=== PATIENT | male | born 1985 | race Hispanic/Latino ===

== ENCOUNTER 2018-02-15 23:48 | Emergency (ER) | payer SELFPAY ==
[~2018-02-15] VITALS: Ht 170.2 cm; Wt 68.0 kg
[2018-02-16] MEDS ORDERED: ASPIRIN 81 MG CHEW TAB PO ONE (00:30)
[2018-02-16 01:26] LABS: BASOPHILS % 0.3 % (0.0-1.0); EOSINOPHILS # (AUTO) 0.2 (0.0-0.4); HEMOGLOBIN 14.9 g/dL (14.0-18.0); LYMPHOCYTES % 12.4 % (18.0-39.1); MEAN CORPUSCULAR HEMOGLOBIN 28.3 pg (28-32); MEAN CORPUSCULAR HGB CONC 33.9 g/dL (31-35); MEAN CORPUSCULAR VOLUME 83.7 fL (81-99); MONOCYTES # (AUTO) 0.6 (0.2-0.8); NEUTROPHILS # (AUTO) 6.2 (2.1-6.9); PLATELET COUNT 263 x10e3/uL (140-360); RED BLOOD COUNT 5.26 x10e6/uL (4.3-5.7); RED CELL DISTRIBUTION WIDTH 12.8 % (11.7-14.4)
--- NOTE | 2018-02-16 01:39 | Diagnostic Imaging Report ---
CHEST SINGLE (PORTABLE), 02/16/2018 12:26 AM Technique: CHEST SINGLE (PORTABLE) Comparison: None available. Clinical history: \S\overdose \[id number] \S\0040 \S\Y Findings: Unremarkable portable appearance of the heart, mediastinum, lungs and pleural spaces. Impression: 1. Lines/Tubes: None 2. No acute abnormality. Signed by: Dr Samantha Gupta MD on 02/16/2018 1:35 AM
[2018-02-16 01:50] LABS: ALANINE AMINOTRANSFERASE 29 IU/L (0-55); ALBUMIN 4.8 g/dL (3.5-5.0); ALBUMIN/GLOBULIN RATIO 1.1 (0.8-2.0); ALKALINE PHOSPHATASE 118 IU/L (40-150); ANION GAP 18.1 mmol/L (8-16); BLOOD UREA NITROGEN 13 mg/dL (7-26); BUN/CREATININE RATIO 15 (6-25); CALCIUM 10.2 mg/dL (8.4-10.2); CARBON DIOXIDE 26 mmol/L (22-29); CHLORIDE 99 mmol/L (98-107); CREATINE KINASE 290 IU/L (30-200); CREATININE, SERUM 0.88 mg/dL (0.72-1.25); EST GLOMERULAR FILTRATION RATE > 60 ML/MIN (60-); GLUCOSE 88 mg/dL (74-118); POTASSIUM 4.1 mmol/L (3.5-5.1); SODIUM 139 mmol/L (136-145)
[2018-02-16 01:54] LABS: ACETAMINOPHEN < 3 ug/mL (10-30); SALICYLATE < 5.0 mg/dL (0-30)
[2018-02-16] MEDS ORDERED: SODIUM CHLORIDE 0.9% 1000ML 1,000 ML IV ONE (03:00)
[2018-02-16 04:16] LABS: BILIRUBIN,URINE NEGATIVE (NEGATIVE); CLARITY,URINE CLEAR (CLEAR); COLOR,URINE YELLOW (YELLOW); KETONES,URINE 2+ (NEGATIVE); LEUKOCYTE ESTERASE ,URINE NEGATIVE (NEGATIVE); NITRITE,URINE NEGATIVE (NEGATIVE); PROTEIN,URINE DIPSTICK NEGATIVE (NEGATIVE); URINE UROBILINOGEN 0.2 mg/dL (0.2 - 1)
[2018-02-16 04:20] LABS: AMPHETAMINES SCREEN,URINE POSITIVE (NEGATIVE)
[2018-02-16 04:21] LABS: BENZODIAZEPINES SCREEN,URINE NEGATIVE (NEGATIVE); PHENCYCLIDINE SCREEN,URINE NEGATIVE (NEGATIVE)
[2018-02-16] MEDS ORDERED: ONDANSETRON HCL INJ 2 MG/ML VIAL IV STA (04:33)
[2018-02-16 04:35] VITALS: BP 142/90
[2018-02-16 04:36] LABS: WBC,URINE (MAN) 0-5 /HPF (0-5)
[2018-02-16 04:37] LABS: BACTERIA,URINE FEW /HPF; EPITHELIAL CELLS,URINE RARE /LPF; MUCUS,URINE MANY (RARE)
== END 2018-02-16 04:45 | disposition home or self-care (01) ==
LOC: ER 23:48
DX: T40.1X1A Poisoning by heroin, accidental (unintentional), initial encounter (principal); Y92.9 Unspecified place or not applicable; Y92.488 Other paved roadways as the place of occurrence of the external cause
CPT/HCPCS: 36415; 71045; 80053; 80307; 80320; 80329 ×2; 81001; 82550; 82553; 84484; 85025; 96360; 99284; J2405; J7030

== ENCOUNTER 2018-08-13 17:16 | Emergency (ER) | payer SELFPAY ==
[~2018-08-13] VITALS: Ht 170.2 cm; Wt 68.0 kg
== END 2018-08-13 18:56 | disposition left against medical advice (07) ==
LOC: ER 17:16
DX: S69.91XA Unspecified injury of right wrist, hand and finger(s), initial encounter (principal)